=== PATIENT | female | born 1955 ===

== ENCOUNTER → 2017-09-17 | Outpatient (CLI) | payer OTHER ==
[~2017-09-17] MED LIST: ALBUTEROL0.83 MG/ML IH; NO HOME MEDICATIONS; PREDNISONE10 MG PO; PREDNISONE20 MG PO; ZITHROMAX 250M250 MG PO
[2017-09-17 12:46] LABS: HEMATOCRIT 42.8 % (37.0-47.0); HEMOGLOBIN 14.1 g/dl (12.5-16.0); MEAN CELL VOLUME 87 fl (80.0-100.0); MEAN CORPUSCULAR HEMOGLOBIN 29 pg (27.0-31.0); MEAN CORPUSCULAR HGB CONC 33 g/dl (33.0-37.0); MEAN PLATELET VOLUME 10.1 fl (7.4-10.4); PLATELET COUNT 245 K/mm3 (130-400); RED BLOOD COUNT 4.95 M/mm3 (4.10-5.30); REDCELL DISTRIBUTION WIDTH-CV 13.1 % (11.5-14.5)
[2017-09-17 13:03] LABS: ALBUMIN 3.8 gm/dL (3.5-5.0); BILIRUBIN,TOTAL 0.3 mg/dL (0.0-1.0); CALCIUM 8.8 mg/dL (8.4-10.2); CREATININE, serum 0.67 mg/dL (0.52-1.25); POTASSIUM 4.1 mmol/L (3.4-5.0); TOTAL PROTEIN 7.9 gm/dL (6.4-8.2)
== END ==
LOC: COL.LAB 11:47
DX: R05 Cough (principal); R50.9 Fever, unspecified; R06.2 Wheezing

== ENCOUNTER → 2019-08-28 | Outpatient (CLI) | payer SELFPAY | LOC: COL.RAD 09:46 | DX: R09.89 Other specified symptoms and signs involving the circulatory and respiratory systems (principal) ==

== ENCOUNTER 2019-09-02 19:04 | Emergency (ER) | payer SELFPAY ==
[~2019-09-02] VITALS: Ht 162.6 cm; Wt 74.5 kg
[2019-09-02 20:07] LABS: BASO # 0.1 (0.0-0.2); BASO % 0.5 % (0.0-2.0); EOS # 0.2 (0.0-0.7); GRAN # 8.5 (1.4-6.5); GRAN % 79.6 % (42.2-75.2); HEMATOCRIT 44.8 % (37.0-47.0); HEMOGLOBIN 14.8 g/dl (12.5-16.0); LYMPH # 1.2 (1.2-3.4); LYMPH % 11.3 % (20.0-51.0); MEAN CELL VOLUME 85 fl (80.0-100.0); MEAN CORPUSCULAR HEMOGLOBIN 28 pg (27.0-31.0); MEAN CORPUSCULAR HGB CONC 33 g/dl (33.0-37.0); MEAN PLATELET VOLUME 10.8 fl (7.4-10.4); MONO # 0.7 (0.1-0.6); MONO % 6.2 % (1.7-9.3); PLATELET COUNT 288 K/mm3 (130-400); RED BLOOD COUNT 5.27 M/mm3 (4.10-5.30); REDCELL DISTRIBUTION WIDTH-CV 12.9 % (11.5-14.5)
[2019-09-02 20:10] LABS: ALBUMIN 4.4 gm/dL (3.5-5.0); BILIRUBIN,TOTAL 0.9 mg/dL (0.0-1.0); C-REACTIVE PROTEIN 2.2 mg/dL (0.0-0.9); CALCIUM 9.3 mg/dL (8.4-10.2); CREATININE, serum 0.57 (0.52-1.25); POTASSIUM 4.3 mmol/L (3.4-5.0); TOTAL PROTEIN 8.4 gm/dL (6.4-8.2)
[2019-09-02 20:37] LABS: COLLECTION METHOD CLEAN CATCH
[2019-09-02] MEDS ORDERED: RT ADVAIR HFA 412 GM (20:42)
[2019-09-02] MEDS ORDERED: ZYRTEC 10MG10 MG PO (20:43)
[2019-09-02 20:56] LABS: MUCOUS Present /lpf; PH 6 (5-8); SQUAMOUS EPITHELIAL 0-2 /hpf; URINE APPEARANCE Clear; URINE BACTERIA None Seen /hpf; URINE BILIRUBIN Negative (NEGATIVE); URINE BLOOD Negative (NEGATIVE); URINE COLOR Yellow; URINE GLUCOSE Negative (NEGATIVE); URINE KETONE Negative (NEGATIVE); URINE LEUKOCYTE ESTERASE Negative (NEGATIVE); URINE NITRATE Negative (NEGATIVE); URINE PROTEIN(semi-quant) Negative (NEGATIVE); URINE UROBILINOGEN Negative (NEGATIVE)
[2019-09-02] MEDS ORDERED: FLEXERIL 1010 MG/TAB PO (21:10)
[2019-09-02] MEDS ORDERED: PREDNISONE20 MG PO (21:10)
[2019-09-02] MEDS ORDERED: NORCO 325 MG-51 TAB PO (21:10)
[2019-09-02 21:20] VITALS: BP 111/68; PULSE 71; TEMP 98.4
== END 2019-09-02 21:31 | disposition home or self-care (01) ==
LOC: COL.ER 19:04
PROVIDERS: Family Medicine
DX: S39.012A Strain of muscle, fascia and tendon of lower back, initial encounter (principal); J45.909 Unspecified asthma, uncomplicated; X50.1XXA Overexertion from prolonged static or awkward postures, initial encounter
CPT/HCPCS: J1885; J2360

== ENCOUNTER 2023-02-13 10:30 | Outpatient (RCR) | payer OTHER ==
[~2023-02-13 10:30] MED LIST changes: +FLEXERIL 1010 MG/TAB PO; +NORCO 325 MG-51 TAB PO; +RT ADVAIR HFA 412 GM; +ZYRTEC 10MG10 MG PO
== END 2023-02-14 | disposition home or self-care (01) ==
LOC: MKS.ESL.OT
DX: S52.502D Unspecified fracture of the lower end of left radius, subsequent encounter for closed fracture with routine healing (principal); X58.XXXD Exposure to other specified factors, subsequent encounter

== ENCOUNTER 2023-03-01 13:00 | Outpatient (RCR) | payer OTHER | END 2023-03-16 | disposition home or self-care (01) | LOC: MKS.ESL.OT | DX: S52.502D Unspecified fracture of the lower end of left radius, subsequent encounter for closed fracture with routine healing (principal); X58.XXXD Exposure to other specified factors, subsequent encounter ==

== ENCOUNTER 2023-05-17 08:13 | Outpatient (RCR) | payer OTHER | END 2023-06-16 | LOC: MKS.ESL.OT | DX: S52.502D Unspecified fracture of the lower end of left radius, subsequent encounter for closed fracture with routine healing (principal); X58.XXXD Exposure to other specified factors, subsequent encounter ==